=== PATIENT | male | born 1970 | race Caucasian/White ===

== ENCOUNTER → 2018-06-27 10:59 | Day surgery (SDC) | payer OTHER ==
--- NOTE | 2018-06-23 10:06 | HP ---
PREOPERATIVE HISTORY AND PHYSICAL EXAM: DATE OF ADMISSION/SURGERY: 06/27/18 [facility] DATE OF OFFICE VISIT/ENCOUNTER: 06/22/18 ATTENDING SURGEON: Myra Martinez MD * (DICTATED BY BERKLEY JIMENEZ) PROCEDURE: Left index finger phalanx closed reduction and percutaneous fixation , wound exploration. CHIEF COMPLAINT: Snowblower injury to left hand. HISTORY OF PRESENT ILLNESS: This is a 47-year-old male, who sustained injury to his left hand on 06/21/18. He was trying to get the snow out of the snowblower and his middle and index fingers got caught in the blades. He was seen initially at [facility]. He had the wounds cleaned and sutured and was referred to Dr. Martinez for followup. X-rays showed a displaced fracture of the middle phalanx of his index finger. The fracture is comminuted. He also has a nondisplaced fracture of the middle finger middle phalanx in addition to the soft tissue skin wounds. He was placed on Keflex and is using tramadol for pain. This is his nondominant hand. The patient takes tramadol with some regularity for back pain. PAST MEDICAL HISTORY: 1. High cholesterol. 2. Chronic back pain. PAST SURGICAL HISTORY: None. CURRENT MEDICATIONS: 1. Cyclobenzaprine HCl 10 mg t.i.d. p.r.n. 2. Fenofibrate micronized 200 mg daily. 3. Meloxicam 15 mg daily. 4. Tramadol HCl 50 mg 1 tab q.4 to 6 hours p.r.n. back brunson. ALLERGIES: No known drug allergies. FAMILY MEDICAL HISTORY: Stroke and diabetes. SOCIAL HISTORY: The patient is not currently working, but he is generally self - employed in [employer]. He is also currently take caring his mother. He is a current smoker. He smokes about a pack per 4 days and he has done so for the past 30 years. He also smokes marijuana with some regularity and drinks alcohol on occasion. REVIEW OF SYSTEMS: Negative for general, cephalic, cardiovascular, GI, , other musculoskeletal, other integumentary, endocrine, neurologic, and hematologic symptoms. Infectious disease is negative for MRSA, hepatitis C, HIV. PHYSICAL EXAMINATION GENERAL: Well-developed, well-nourished 47-year-old male, in no acute distress. VITAL SIGNS: Height 5 feet 9 inches, weight 144 pounds. Pulse rate 75, blood pressure 138/90. HEENT: Normocephalic, atraumatic. Pupils are equal, round, and reactive to light and accommodation. Extraocular movements are intact. Throat is clear. NECK: Supple. No palpable lymph nodes. PULMONARY: Lungs are clear to auscultation bilaterally. No wheezes, rales, or rhonchi. CARDIOVASCULAR: Regular rate and rhythm. S1, S2. No murmurs, rubs, or gallops. No edema. ABDOMEN: Positive bowel sounds. Soft, nontender. NEUROLOGICAL: Alert and oriented x3. Cranial nerves II through XII are intact. MUSCULOSKELETAL: On exam of his left hand, he has lacerations of the index and the middle fingers at the PIP flexion crease. He has active flexion of the PIP and DIP joints of both of those fingers. Skin is intact. Neurovascular function is intact. IMPRESSION: Middle phalanx fractures of the index and middle finger on the left hand and a possible partial flexor tendon laceration of the index finger DIP joint. PLAN: The patient is scheduled to undergo left index finger phalanx closed reduction and percutaneous fixation, and wound exploration with Dr. Martinez on 11/09. He will follow in the office 10 days postop for a recheck. A prescription for Wakita was e-scribed to the patient's pharmacy for postoperative pain management. BERKLEY JIMENEZ [id number]/[facility] #: [id number] [place]
[~2018-06-27 10:59] MED LIST: Buffered Lidocaine 0.9% SYRIN* 5 ML/SYR SYRINGE INTRADERM ONE; Dexamethasone IV* 4 MG/ML 1 ML (4 MG) ONE; DiMENhydriNATE IV* 50 MG/ML VIAL IV PUSH PRN; Famotidine IV* 10 MG/ML 2 ML (20 mg) IV ONE; Famotidine IV* 10 MG/ML 2 ML (20 mg) ONE; HYDROmorphone INJ* 0.5 MG/0.5 ML SYRINGE ONE; HYDROmorphone INJ1* 1 MG/ML SYRINGE IV PRN; Ketorolac INJ* 30 MG/ML 1 ML VIAL ONE; Lidocaine 1% INJ* 10 MG/ML 30 ML SDV ONE; Lidocaine 2% PF * 5 ML VIAL ONE; Midazolam* 1 MG/ML 5 ML VIAL (5 MG) ONE; Naloxone* 0.4 MG/ML 1 ML VIAL IV PRN; Ondansetron INJ* 2 MG/ML VIAL ONE; Propofol* 10 MG/ML 20 ML BTL ONE; ceFAZolin 2 GM PREMIX in ORs 2 GM/50 ML BAG IVPB ONE; fentaNYL* 50 MCG/ML 2 ML VIAL (100 MCG VIAL) ONE; oxyCODONE/Acetamin 5/325 MG* TAB PO PRN
[2018-06-27 15:21] VITALS: BP 128/88
--- NOTE | 2018-06-28 07:56 | OP ---
DATE OF OPERATION: 07/07/18 - [facility] DATE OF : 68. SURGEON: Myra Martinez MD. MOCCASIN SEWER: BERKLEY Rendon. ANESTHESIA: General. PRE-OP DIAGNOSIS: Snowblower injury to the left index finger with a middle phalanx fracture which is displaced and a laceration on the volar aspect of the finger. POST-OP DIAGNOSIS: 1. Snowblower injury to the left index finger with a middle phalanx fracture which is displaced and a laceration of the volar aspect of the finger. 2. Intact flexor tendon and digital nerves and middle phalanx fracture. OPERATIVE PROCEDURE: Left index finger wound exploration and closed reduction pinning of the index finger middle phalanx. ESTIMATED BLOOD LOSS: Zero. TOURNIQUET TIME: About 15 minutes. INDICATION FOR PROCEDURE: Armand is a 47-year-old male who injured his left middle and index fingers when trying to un-jam the snow the from his snowblower. He suffered a laceration and fracture of the index finger. The fracture was displaced. He has no sensory loss, but does have some loss of motion of the index finger. Motion is intact in the middle finger. He presents for wound exploration and fracture repair of the left index finger. DESCRIPTION OF PROCEDURE: The patient was brought to the operating room, was given a general anesthetic and placed on the supine position on the operating table with a tourniquet around his left upper arm. Skin of the left upper extremity was prepped and draped in the usual sterile fashion. The hand and forearm were exsanguinated and the tourniquet elevated to 250 mmHg. The sutures in the index finger removed and the wound was explored, the flexor tendon was intact. The flexor tendon sheath was intact. The digital neurovascular bundles were intact. The wound was copiously irrigated with saline. Some of the necrotic tissue was debrided and then the wound closed in interrupted fashion with 4-0 nylon suture. Next the fracture was reduced and then secured with two 0.035 inch K-wires which were placed percutaneously. The position of the K-wires and the fracture fragments were checked on the C-arm in the AP and lateral views and thought to be satisfactory. The pins were bent and pin caps were placed and then the wound was dressed with Xeroform, 4x4, Webril and an Alumafoam splint. The patient tolerated the procedure well and was brought to the recovery room in good condition. [id number]/[facility] #: [id number] [place]
== END | disposition home or self-care (01) ==
LOC: OREAST 10:59
PROVIDERS: ATTEND Orthopaedic Surgery
DX: S62.621A Displaced fracture of middle phalanx of left index finger, initial encounter for closed fracture (principal); S61.211A Laceration without foreign body of left index finger without damage to nail, initial encounter; W31.89XA Contact with other specified machinery, initial encounter; Y92.9 Unspecified place or not applicable; Y93.H1 Activity, digging, shoveling and raking; F17.210 Nicotine dependence, cigarettes, uncomplicated; E78.5 Hyperlipidemia, unspecified
CPT/HCPCS: C1776; J0690; J1100; J1170; J1885; J2250; J2405; J2704; J3010

== ENCOUNTER 2019-11-17 10:42 | Emergency (ER) | payer OTHER ==
--- NOTE | 2019-11-17 11:17 | UC ---
Skin Complaint HPI - HPI Summary HPI Summary: 49 yo male with 4-5 day hx of BARNEY, feverish, chills myalagias/arthralgias He works outdoors recently removed a tick that he thinks was attached >24 hours no rash no stiff neck no cp or sob no URI symptoms - History of Current Complaint Chief Complaint: UCBiteInjury Time Seen by Provider: 11/17/19 10:45 Stated Complaint: TICK Hx Obtained From: Patient Onset/Duration: Gradual Onset, Lasting Days Timing: Constant Onset Severity: Mild Current Severity: Mild Pain Intensity: 2 Pain Scale Used: 0-10 Numeric Aggravating Factor(s): Nothing Alleviating Factor(s): Nothing Associated Signs & Symptoms: Positive: Fever - ravi, Chills. Negative: Nausea, Vomiting, Numbness, Thirst, Diaphoresis, Weakness, Pallor, Shivering, Difficulty Breathing, Cough, Wheezing, Chest Pain, Hoarseness, Throat Tightening , Rash, Abdominal Pain, Lightheadedness, Syncope, Drainage, Bruising, Tenderness , Red Streaks, Joint Swelling Related History: Insect Bite/Sting - Allergy/Home Medications Allergies/Adverse Reactions: Allergies Allergy/AdvReac Type Severity Reaction Status Date / Time No Known Allergies Allergy Verified 11/17/19 10:58 Home Medications: Home Medications DOXYcycline CAP(*) [DOXYcycline 100MG CAP(*)] 100 mg PO BID #20 cap 11/17/19 [Rx ] Ibuprofen TAB* [Motrin TAB* 800 MG] 400 mg PO Q6H 11/17/19 [History Confirmed ] Multivitamin/Iron/Folic Acid [Centrum Complete Multivit Tab] 1 each PO DAILY [History Confirmed 11/17/19] PMH/Surg Hx/FS Hx/Imm Hx Previously Healthy: Yes - Surgical History Surgical History: None - Family History Known Family History: Positive: Hypertension - Social History Alcohol Use: None Alcohol Amount: 6 per month Substance Use Type: Marijuana Substance Use Comment - Amount & Last Used: couple of times per week Smoking Status (MU): Heavy Every Day Tobacco Smoker Amount Used/How Often: 1/2 pack a day for 30 yrs Review of Systems All Other Systems Reviewed And Are Negative: Yes Constitutional: Positive: Fever - ravi, Chills Skin: Positive: Negative - tick bite, Other Eyes: Positive: Negative ENT: Positive: Negative Respiratory: Positive: Negative Cardiovascular: Positive: Negative Gastrointestinal: Positive: Negative Genitourinary: Positive: Negative Motor: Positive: Negative Neurovascular: Positive: Negative Musculoskeletal: Positive: Arthralgia, Myalgia Neurological/Mental Status: Positive: Headache Psychological: Positive: Negative Physical Exam Triage Information Reviewed: Yes Appearance: Well-Appearing, No Pain Distress, Well-Nourished Vital Signs: Initial Vital Signs Temp 98.6 F 11/17/19 10:51 Pulse 77 11/17/19 10:51 Resp 16 11/17/19 10:51 BP 160/98 11/17/19 10:51 Pulse Ox 95 11/17/19 10:51 Vital Signs Reviewed: Yes Eyes: Positive: Conjunctiva Clear ENT: Positive: Hearing grossly normal, Pharynx normal, Uvula midline. Negative : Nasal congestion, Nasal drainage, TMs normal, TM bulging, TM dull, TM red, Tonsillar swelling, Tonsillar exudate, Trismus, Muffled voice, Hoarse voice, Dental tenderness, Sinus tenderness Dental Exam: Normal Neck: Positive: Supple, Nontender, No Lymphadenopathy Respiratory: Positive: Lungs clear, Normal breath sounds, No respiratory distress Cardiovascular: Positive: RRR, No Murmur, Pulses Normal Musculoskeletal: Positive: Other: - no red/swollen joints Neurological: Positive: Alert, Muscle Tone Normal, Fatigued Psychological Exam: Normal Skin Exam: Other - no rash noted Course/Dx - Diagnoses Provider Diagnosis: Tick bite, Smoker, Elevated BP without diagnosis of hypertension Discharge ED - Sign-Out/Discharge Documenting (check all that apply): Patient Departure All imaging exams completed and their final reports reviewed: No Studies - Discharge Plan Condition: Stable Disposition: HOME Patient Education Materials: Tick Bite (ED) Referrals: Rodriguez Campos MD [Primary Care Provider] - 1 Week (you need BP followed) Additional Instructions: we will treat for possible Lyme disease blood work pending - Billing Disposition and Condition Condition: STABLE Disposition: Home
--- NOTE | 2019-11-17 11:17 | UC ---
Respiratory Complaint HPI - History of Current Complaint Chief Complaint: UCBiteInjury Stated Complaint: TICK Time Seen by Provider: 11/17/19 10:45 Pain Intensity: 2 - Allergies/Home Medications Allergies/Adverse Reactions: Allergies Allergy/AdvReac Type Severity Reaction Status Date / Time No Known Allergies Allergy Verified 11/17/19 10:58 Home Medications: Home Medications Ibuprofen TAB* [Motrin TAB* 800 MG] 400 mg PO Q6H 11/17/19 [History Confirmed ] Multivitamin/Iron/Folic Acid [Centrum Complete Multivit Tab] 1 each PO DAILY [History Confirmed 11/17/19] PMH/Surg Hx/FS Hx/Imm Hx - Surgical History Surgical History: None - Social History Alcohol Use: None Alcohol Amount: 6 per month Substance Use Type: Marijuana Substance Use Comment - Amount & Last Used: couple of times per week Smoking Status (MU): Heavy Every Day Tobacco Smoker Amount Used/How Often: 1/2 pack a day for 30 yrs Physical Exam Vital Signs: Initial Vital Signs Temp 98.6 F 11/17/19 10:51 Pulse 77 11/17/19 10:51 Resp 16 11/17/19 10:51 BP 160/98 11/17/19 10:51 Pulse Ox 95 11/17/19 10:51 Discharge ED - Discharge Plan Referrals: Rodriguez Campos MD [Primary Care Provider] -
[2019-11-17 11:32] VITALS: BP 162/116
[2019-11-17 15:11] LABS: ABS Basophils 0.1 10^3/ul (0-0.2); ABS Eosinophils 0.1 10^3/ul (0-0.6); ABS Monocytes 0.7 10^3/ul (0-0.8); ABS Neutrophils 3.9 10^3/ul (1.5-7.7); Eosinophil % 1.4 %; Hematocrit 50 % (42-52); Hemoglobin 17.3 g/dL (14.0-18.0); Lymphocyte % 29.7 %; Mean Corpuscular HGB Conc 35 g/dL (31-36); Mean Corpuscular Hemoglobin 32 pg (27-31); Mean Corpuscular Volume 92 fL (80-94); Mean Platelet Volume 8.9 fL (7.4-10.4); Nucleated Red Blood Cells % 0.1; Platelet Count 268 10^3/uL (150-450); Red Blood Count 5.37 10^6 /uL (4.18-5.48); Red Cell Distribution Width 14 % (10-15); White Blood Count 6.8 10^3/uL (3.5-10.8)
[2019-11-17 17:54] LABS: Erythrocyte Sed Rate 3 mm/Hr (0-19)
--- NOTE | 2019-11-19 08:11 | UC ---
- Progress Note Progress Note: Lyme screen Neg IgG, IgM Please notify patient No cell changer Ljj Course/Dx - Diagnoses Provider Diagnoses: Tick bite, Smoker, Elevated BP without diagnosis of hypertension Discharge ED - Sign-Out/Discharge Documenting (check all that apply): Post-Discharge Follow Up All imaging exams completed and their final reports reviewed: No Studies - Discharge Plan Condition: Stable Disposition: HOME Prescriptions: DOXYcycline CAP(*) [DOXYcycline 100MG CAP(*)] 100 mg PO BID #20 cap Patient Education Materials: Tick Bite (ED) Referrals: Rodriguez Campos MD [Primary Care Provider] - 1 Week (you need BP followed) Additional Instructions: we will treat for possible Lyme disease blood work pending - Billing Disposition and Condition Condition: STABLE Disposition: Home
== END 2019-11-17 11:39 | disposition home or self-care (01) ==
LOC: UCCORT 10:42
DX: R51 Headache (principal); M79.10 Myalgia, unspecified site; R50.9 Fever, unspecified; T14.8XXA Other injury of unspecified body region, initial encounter; W57.XXXA Bitten or stung by nonvenomous insect and other nonvenomous arthropods, initial encounter; Y92.9 Unspecified place or not applicable; R03.0 Elevated blood-pressure reading, without diagnosis of hypertension; F17.200 Nicotine dependence, unspecified, uncomplicated
CPT/HCPCS: 36415; 85025; 85652; 86618; 99212; G0463